=== PATIENT | male | born 1950 | race Caucasian/White ===

== ENCOUNTER 2021-07-08 05:25 | Day surgery (SDC) | payer MEDICARE ==
[2021-07-03 13:49] LABS: BASOPHILS # (AUTO) 0.1 X10'3 (0-0.2); BASOPHILS % (AUTO) 1.3 % (0-1); EOSINOPHILS # (AUTO) 0.1 X10'3 (0-0.9); EOSINOPHILS % (AUTO) 1.4 % (0-6); LYMPHOCYTES # (AUTO) 1.9 X10'3 (1.1-4.8); LYMPHOCYTES % (AUTO) 30.6 % (21-51); MEAN CORPUSCULAR HGB CONC 33.4 g/dL (33.0-36.5); MEAN CORPUSCULAR VOLUME 95.8 FL (78-98); MEAN PLATELET VOLUME 7.3 FL (7.4-10.4); MONOCYTES # (AUTO) 0.7 X10'3 (0-0.9); MONOCYTES % (AUTO) 11.8 % (2-12); NEUTROPHILS # (AUTO) 3.3 X10'3 (1.8-7.7); NEUTROPHILS % (AUTO) 54.9 % (42-75); PRE OP HEMATOCRIT 44.8 % (42.0-52.0); PRE OP PLATELET COUNT 336 X10'3 (140-440); RED BLOOD COUNT 4.68 X10'6 (4.70-6.10); RED CELL DISTRIBUTION WIDTH 13.8 % (11.5-14.5)
[2021-07-03 13:53] LABS: CLARITY,URINE CLEAR (Clear); COLOR,URINE YELLOW (Yellow); GLUCOSE, URINE NEGATIVE (Neg); KETONES,URINE NEGATIVE (Neg); NITRITES, URINE NEGATIVE (Neg); OCCULT BLOOD,URINE TRACE-INTACT (Neg); PROTEIN,URINE NEGATIVE (Neg); UA COLLECTION TYPE VOIDED; UROBILINOGEN,URINE 0.2 E.U/dL (0.2-1.0)
[2021-07-03 13:54] LABS: LEUKOCYTE ESTERASE ,URINE NEGATIVE (Neg)
[2021-07-03 14:00] LABS: ALBUMIN 3.9 G/DL (3.4-5.0); ALBUMIN/GLOBULIN RATIO 1.2 (1.1-1.5); ALKALINE PHOSPHATASE 62 IU/L (46-116); BLOOD UREA NITROGEN 15 MG/DL (7-18); BUN/CREATININE RATIO 15.2 (5.4-32.0); CALCIUM 8.4 MG/DL (8.5-10.1); CHLORIDE 107 MMOL/L (99-107); CREATININE 0.99 MG/DL (0.60-1.10); PRE OP ALT 40 U/L (30-65); PRE OP ANION GAP 10 (8-16); PRE OP AST 23 U/L (10-37); PRE OP BILIRUB, TOTAL 0.5 MG/DL (0.0-1.0); PRE OP GLUCOSE 99 MG/DL (70-104); PRE OP SODIUM 144 MMOL/L (135-145); TOTAL CARBON DIOXIDE 26.6 MMOL/L (24-32); TOTAL PROTEIN 7.2 G/DL (6.4-8.2); eGFR 75 ML/MIN
[2021-07-03 14:16] LABS: BACTERIA,URINE NONE SEEN /HPF (Neg); MUCUS STRANDS NONE SEEN /LPF (Neg); RBC,URINE 0-2 /HPF (0-2); SQUAMOUS EPITHELIAL CELL,UR NONE SEEN /LPF (FEW); WBC,URINE 0-4 /HPF (0-4)
[~2021-07-08] VITALS: Ht 172.7 cm; Wt 82.4 kg
[2021-07-08] VITALS (9 sets, daily range): BP systolic 138–164; BP diastolic 80–108
[~2021-07-08 05:25] MED LIST: BENA20TA82 PO; BUDE10.2 INH; OXYM30SP26 BOTHNARES; ROSU20TA2 PO; ringers solution, lacted 1,000 ML IV SCH
[2021-07-08] MEDS ORDERED: cefazolin/dext.iso 2gm/50ml 50 ML IV ONE (05:30)
[2021-07-08] MEDS ORDERED: famotidine 20mg tablet PO ONE (05:30)
[2021-07-08] MEDS ORDERED: ALBU8HFA INH (06:06)
[2021-07-08] MEDS ORDERED: BUPIVAcaine/PF 2.5 mg/ml (0.25%) 30ml vial ONE (08:08)
[2021-07-08] MEDS ORDERED: morphine 2 MG/ML inj. syringe IV PRN (08:20)
[2021-07-08] MEDS ORDERED: fentaNYL/PF 50MCG/1 ML 2ML syringe IV PRN ×2 (08:20)
[2021-07-08] MEDS ORDERED: hydrALAZINE 20mg/ml inj. IV PRN (08:20)
[2021-07-08] MEDS ORDERED: ringers solution, lacted 1,000 ML IV SCH (08:20)
[2021-07-08] MEDS ORDERED: labetalol 20mg/4ml (5mg/ml) syringe IV PRN (08:20)
[2021-07-08] MEDS ORDERED: ondansetron/PF 4mg/2ml inj IV PRN (08:20)
[2021-07-08] MEDS ORDERED: morphine 4 MG/ML inj SYRINge IV PRN (08:20)
[2021-07-08] MEDS ORDERED: fentaNYL/PF 50MCG/1 ML 2ML syringe ONE ×2 (08:28)
[2021-07-08] MEDS ORDERED: midazolam 1 mg/ML 2ml injection ONE (08:28)
[2021-07-08] MEDS ORDERED: rocuronium 10mg/ml inj IV ONE ×2 (08:31→09:52)
[2021-07-08] MEDS ORDERED: propofol inj 20 ML IV ONE (08:31)
[2021-07-08] MEDS ORDERED: LIDOcaine 2% (20mg/ml) 5ml vial ONE (08:31)
[2021-07-08] MEDS ORDERED: neostigmine methylsulfate 1 MG/ML 10ml vial ONE (08:31)
[2021-07-08] MEDS ORDERED: glycopyrrolate 0.2mg/ml inj ONE (08:32)
[2021-07-08] MEDS ORDERED: dexamethasone sod phosphate 4mg/ml inj. ONE (08:32)
[2021-07-08] MEDS ORDERED: ondansetron/PF 4mg/2ml inj ONE (08:32)
[2021-07-08] MEDS ORDERED: labetalol 20mg/4ml (5mg/ml) syringe IV ONE (09:08)
--- NOTE | 2021-07-08 10:25 | NUR ---
Received from OR via [facility] , accompanied by Anesthesiologist ELICIA and report given by Anesthesiolgist. 3 ABDOMINAL LAP SITES PRESENT AND ARE CDI. VSS. DENIES PAIN AT THIS TIME. 20G PIV IN LEFT UE RUNNING LR AT 100. 10L MASK ON WITH 100% SATURATIONS. Addendum: 07/08/21 at 1033 by Js Vega RN, RN Amended: Links added.
--- NOTE | 2021-07-08 12:15 | NUR ---
REVEIVED PT. AND REPORT FROM JONATAN PEMBERTON. VSS. DENIES PAIN. PT. WAITING TO URINATE. FLUIDS AT BEDSIDE. LR INFUSING AT 150 ML/HR IN R. WRIST 20 G. IV. CDI. PT. DENIES NEED TO USE RESTROOM. CALL LIGHT IN REACH. WILL CONTINUE TO MONITOR. Addendum: 07/08/21 at 1303 by Stefany Mccullough RN Amended: Links added.
--- NOTE | 2021-07-08 13:53 | NUR ---
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 INSTRUCTED ON THE RISK AND IF UNABLE TO VOID TO RETURN TO THE ER FOR FOLLOW UP, PT AGREE DC INSTRUCTIONS GIVEN NO ?'S OR CONCERNS MEETS CRITERIA TO GO HOME. CALLED. Addendum: 07/08/21 at 1356 by Tabitha Mora RN Amended: Links added.
== END 2021-07-08 14:05 | disposition home or self-care (01) ==
LOC: PAS 05:25
PROVIDERS: ATTEND Surgery
DX: K40.90 Unilateral inguinal hernia, without obstruction or gangrene, not specified as recurrent (principal); J45.909 Unspecified asthma, uncomplicated; I10 Essential (primary) hypertension; Z20.822 Contact with and (suspected) exposure to COVID-19; Z79.899 Other long term (current) drug therapy; Z86.16 Personal history of COVID-19; Z98.890 Other specified postprocedural states; Z87.891 Personal history of nicotine dependence
CPT/HCPCS: 36415; 49650; 80053; 81001; 82948; 85025; 93005; C1758; C1781; J1100; J2001; J2250; J2270; J2405; J2704; J2710; J3010; J3490; U0003; U0005; Z7506; Z7508; Z7512; A4215; A4618; J7120